=== PATIENT | male | born 1975 | race Caucasian/White ===

== ENCOUNTER 2019-03-31 21:38 | Emergency (ER) | payer MEDICAID, OTHER ==
[~2019-03-31] VITALS: Ht 162.6 cm; Wt 74.0 kg
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
--- NOTE | 2019-03-31 22:01 | NUR ---
PT TO CT
--- NOTE | 2019-03-31 22:30 | NUR ---
LEFT HIP ELEVATED WITH PILLOWS, ICE PACK APPLIED, PROVIDED PT WITH LEMON GLYCERIN MOUTH SWAB.PT DENIES FURTHER NEEDS, MONITORS IN PLACE, CALL LIGHT WITHIN REACH
--- NOTE | 2019-03-31 23:21 | NUR ---
PT RESTING ON GURNEY ON RIGHT SIDE WITH EYES CLOSED, NAD, OPENS EYES TO VERBAL RESPONSE, DENIES NEEDS, MONITORS IN PLACE, CALL LIGHT WITHIN REACH. AWAITING XRAY RESULTS
[2019-04-01 00:02] VITALS: BP 118/70
== END 2019-04-01 00:24 | disposition home or self-care (01) ==
LOC: ED 23:50
DX: G89.11 Acute pain due to trauma (principal); M54.2 Cervicalgia; M79.601 Pain in right arm; M79.602 Pain in left arm; M25.552 Pain in left hip; M54.5 Low back pain; F10.10 Alcohol abuse, uncomplicated; J45.909 Unspecified asthma, uncomplicated; F17.210 Nicotine dependence, cigarettes, uncomplicated; Y04.8XXA Assault by other bodily force, initial encounter; Y93.01 Activity, walking, marching and hiking; Y92.410 Unspecified street and highway as the place of occurrence of the external cause; Y99.8 Other external cause status
CPT/HCPCS: 70450; 72072; 72110; 72125; 99284